=== PATIENT | female | born 1985 | race Caucasian/White ===

== ENCOUNTER 2016-11-14 10:00 | Emergency (ER) | payer BC ==
[2016-11-14 10:52] LABS: Appearance,Urine Clear (Clear); Bacteria,Urine Rare /hpf; Bilirubin,Urine Negative (Negative); Glucose,Urine (UA) Negative (Negative); Ketones,Urine Negative (Negative); Leukocyte Esterase,Urine Negative (Negative); Mucus,Urine Rare /hpf; Nitrite,Urine Negative (Negative); PH, Urine 5.5 (5.0-8.0); Particle Count 2842; Protein,Urine Negative (Negative); RBC,Urine 1 /hpf (0-5); Specific Gravity,Urine 1.012 (1.001-1.035); Squamous Epithelial Cell,Urine <1 /hpf (0-4); UA Billing (MACRO vs. MICRO) MICRO; Urobilinogen,Urine <2.0 mg/dL (<2.0); WBC,Urine 1 /hpf (0-5)
--- NOTE | 2016-11-14 11:24 | ED ---
Psych HPI - General Chief Complaint: Psychiatric Symptoms Stated Complaint: anxiety Time Seen by Provider: 11/14/16 10:52 Source: patient, family, RN notes reviewed Mode of arrival: ambulatory - History of Present Illness Initial Comments: Patient is a 31-year-old female presents to the emergency room for psychiatric evaluation. Patient states she has a history of anxiety and depression. Patient states she has episodes every once in a while of extreme anxiety and depression. Patient states she was placed on Xanax about a week ago but is not helping. Patient states her mind is racing constantly. Patient states she is not suicidal but also has thoughts that she does not want to be here anymore. Patient denies visual hallucinations. Patient denies homicidal ideations. Patient denies drinking alcohol, smoking or drug use. Patient denies any medical history. Patient denies headache, dizziness, chest pain, shortness of breath, nausea, vomiting. - Related Data Home Medications Medication Instructions Recorded Confirmed ALPRAZolam [Xanax] 0.5 mg PO TID PRN 11/14/16 11/14/16 Magnesium(Unknown Dose) 1 tab PO DAILY 11/14/16 11/14/16 Allergies Allergy/AdvReac Type Severity Reaction Status Date / Time No Known Allergies Allergy Verified 11/14/16 10:48 Review of Systems ROS Statement: Those systems with pertinent positive or pertinent negative responses have been documented in the HPI. ROS Other: All systems not noted in ROS Statement are negative. Past Medical History Past Medical History: No Reported History History of Any Multi-Drug Resistant Organisms: None Reported Past Surgical History: No Surgical Hx Reported Past Psychological History: Anxiety, Depression Smoking Status: Never smoker Past Alcohol Use History: None Reported Past Drug Use History: None Reported General Exam - General Exam Comments Initial Comments: Sitting in exam room, no acute distress. Limitations: no limitations General appearance: alert, in no apparent distress Head exam: Present: atraumatic, normocephalic, normal inspection Eye exam: Present: normal appearance ENT exam: Present: normal exam Neck exam: Present: normal inspection Respiratory exam: Present: normal lung sounds bilaterally. Absent: respiratory distress Cardiovascular Exam: Present: regular rate, normal rhythm, normal heart sounds GI/Abdominal exam: Present: soft, normal bowel sounds. Absent: distended, tenderness, guarding, rebound, rigid Extremities exam: Present: normal inspection Back exam: Present: normal inspection Neurological exam: Present: alert, oriented X3, CN II-XII intact, normal gait Psychiatric exam: Present: normal affect, normal mood Skin exam: Present: warm, dry, intact, normal color. Absent: rash Course Vital Signs 11/14/16 11/14/16 10:19 12:58 Temperature 98.1 F 97.8 F Pulse Rate 94 89 Respiratory 18 16 Rate Blood Pressure 128/62 116/87 O2 Sat by Pulse 100 98 Oximetry Medical Decision Making - Medical Decision Making Patient is a 31-year-old female presents emergency room for evaluation of depression and anxiety. Patient evaluated by emergency psych services and does not meet admission criteria at this time. Patient provided with outpatient resources. Return parameters discussed. - Lab Data Lab Results 11/14/16 11/14/16 Range/Units 10:35 10:35 Urine Color Yellow Urine Appearance Clear (Clear) Urine pH 5.5 (5.0-8.0) Ur Specific [place] 1.012 (1.001-1.035) Urine Protein Negative (Negative) Urine Glucose (UA) Negative (Negative) Urine Ketones Negative (Negative) Urine Blood Small H (Negative) Urine Nitrite Negative (Negative) Urine Bilirubin Negative (Negative) Urine Urobilinogen <2.0 (<2.0) mg/dL Ur Leukocyte Esterase Negative (Negative) Urine RBC 1 (0-5) /hpf Urine WBC 1 (0-5) /hpf Ur Squamous Epith Cells <1 (0-4) /hpf Urine Bacteria Rare H (None) /hpf Urine Mucus Rare H (None) /hpf Urine HCG, Qual Not Detected (Not Detectd) Urine Opiates Screen Not Detected (NotDetected) Ur Oxycodone Screen Not Detected (NotDetected) Urine Methadone Screen Not Detected (NotDetected) Ur Propoxyphene Screen Not Detected (NotDetected) Ur Barbiturates Screen Not Detected (NotDetected) U Tricyclic Antidepress Not Detected (NotDetected) Ur Phencyclidine Scrn Not Detected (NotDetected) Ur Amphetamines Screen Not Detected (NotDetected) U Methamphetamines Scrn Not Detected (NotDetected) U Benzodiazepines Scrn Detected H (NotDetected) Urine Cocaine Screen Not Detected (NotDetected) U Marijuana (THC) Screen Not Detected (NotDetected) Disposition Clinical Impression: Acute anxiety, Depression Disposition: HOME SELF-CARE Condition: Good Instructions: Depression (ED), Generalized Anxiety Disorder (ED) Additional Instructions: Please follow up with primary care provider or therapist. If any new symptom arises or symptoms worsen, return to ER as soon as possible. Referrals: None,Stated [Primary Care Provider] - 1-2 days Time of Disposition: 12:43
[2016-11-14 12:59] VITALS: BP 116/87; PULSE 89; RESP 16; TEMP 97.8
== END 2016-11-14 12:59 | disposition home or self-care (01) ==
LOC: EC 10:00
DX: F41.9 Anxiety disorder, unspecified (principal); F32.9 Major depressive disorder, single episode, unspecified; Z79.899 Other long term (current) drug therapy
CPT/HCPCS: 80306; 81001; 81025; 82075; 99285

== ENCOUNTER 2018-02-08 07:50 | Emergency (ER) | payer BC ==
[2018-02-08 07:59] VITALS: BP 123/77; PULSE 86; RESP 18; TEMP 98.4
[2018-02-08] MEDS ORDERED: PROPARACAINE 0.5% OPHTH DROPS 15 ML BTL BOTH EYES STA (08:24)
--- NOTE | 2018-02-08 08:27 | ED ---
Eye Problem HPI - General Chief complaint: Eye Problems Stated complaint: VISUAL DISTURBANCE Time Seen by Provider: 02/08/18 08:03 Source: patient, RN notes reviewed, old records reviewed Mode of arrival: ambulatory Limitations: no limitations - History of Present Illness Initial comments: 32-year-old female presents to the emergency department today with chief complaint of bilateral eye irritation. Patient reports that she saw her locomotive firer yesterday and was given a new prescription for contacts. Patient reports she put her new contacts and shortly afterward she started to have pain and irritation with bilateral eyes. She reports that she took the contacts out every 30 minutes. Continued had irritation. She does also report that prior to putting her contacts and she did eat jalapeno chips. Patient's states there is a possibility could be some irritation from the jalapeno flavoring. Patient states he did flush her eyes with water and milk. He did have some improvement afterwards but this evening she continue to have burning and pain in the eye. - Related Data Home Medications Medication Instructions Recorded Confirmed ALPRAZolam [Xanax] 0.5 mg PO TID PRN 11/14/16 11/14/16 Magnesium(Unknown Dose) 1 tab PO DAILY 11/14/16 11/14/16 Previous Rx's Medication Instructions Recorded Erythromycin Ophth Oint [Romycin 1 applic BOTH EYES QID #1 tube 02/08/18 Ophth Oint] Ketotifen 0.025% Ophth Soln 1 drop BOTH EYES BID #1 bottle 02/08/18 [Zaditor] Allergies Allergy/AdvReac Type Severity Reaction Status Date / Time No Known Allergies Allergy Verified 02/08/18 07:51 Review of Systems ROS Statement: Those systems with pertinent positive or pertinent negative responses have been documented in the HPI. ROS Other: All systems not noted in ROS Statement are negative. Past Medical History Past Medical History: No Reported History History of Any Multi-Drug Resistant Organisms: None Reported Past Surgical History: No Surgical Hx Reported Past Psychological History: Anxiety, Bipolar, Depression Smoking Status: Never smoker Past Alcohol Use History: None Reported Past Drug Use History: None Reported General Exam - General Exam Comments Initial Comments: 32-year-old female. Alert and oriented. No acute distress. Limitations: no limitations General appearance: alert, in no apparent distress Head exam: Present: atraumatic, normocephalic, normal inspection Eye exam: Present: PERRL, EOMI, conjunctival injection, other (No evidence of corneal abrasion or ulceration.). Absent: normal appearance (Bilateral minimal conjunctival injection.), scleral icterus, periorbital swelling ENT exam: Present: normal exam, normal oropharynx, mucous membranes moist, TM's normal bilaterally Neck exam: Present: normal inspection. Absent: tenderness, meningismus, lymphadenopathy Respiratory exam: Present: normal lung sounds bilaterally. Absent: respiratory distress, wheezes, rales, rhonchi, stridor Cardiovascular Exam: Present: regular rate, normal rhythm, normal heart sounds. Absent: systolic murmur, diastolic murmur, rubs, gallop, clicks GI/Abdominal exam: Present: soft, normal bowel sounds. Absent: distended, tenderness, guarding, rebound, rigid Extremities exam: Present: normal inspection, full ROM, normal capillary refill. Absent: tenderness, pedal edema, joint swelling, calf tenderness Back exam: Present: normal inspection Neurological exam: Present: alert, oriented X3, CN II-XII intact Psychiatric exam: Present: normal affect, normal mood Skin exam: Present: warm, dry, intact, normal color. Absent: rash Course Vital Signs 02/08/18 07:51 Temperature 98.4 F Pulse Rate 86 Respiratory 18 Rate Blood Pressure 123/77 O2 Sat by Pulse 99 Oximetry Medical Decision Making - Medical Decision Making This patient's a 32-year-old female presents emergency with bilateral eye irritation after putting his contacts in. Patient ports that started at 3:30 minutes after she contacted yesterday. Patient has evidence of bilateral conjunctival injection. No evidence of corneal abrasion or ulceration. Is not wearing contacts at this time. Just had a poor visual acuity but Patient reports that is chronic issues request that as well. Patient does have some diffuse uptake on fluorescein eye exam. Likely ALLERGIC conjunctivitis. She has been touching her eye frequently. Discussed putting her on the antibiotic ointment as well as antihistamine drops for the eye. Discussed that she should discontinue her contacts and only wear glasses in the meantime. Following up with her locomotive firer and emergency room clinician. Patient understands treatment plan will comply. Term parameters were discussed. Patient's pressures and I were 17 on the left and 15 on the right eye. Disposition Clinical Impression: Allergic conjunctivitis Disposition: HOME SELF-CARE Condition: Good Additional Instructions: Patient advised to discontinue wearing contacts until the symptoms clear. Follow-up with her emergency room clinician or locomotive firer next week. We wearing any glasses. Patient should apply the Patient has been dropped the eye as well as the ophthalmic antibiotic ointment. Return to the emergency department if any alarming signs or symptoms occur. Prescriptions: Erythromycin Ophth Oint [Romycin Ophth Oint] 1 applic BOTH EYES QID #1 tube Ketotifen 0.025% Ophth Soln [Zaditor] 1 drop BOTH EYES BID #1 bottle Is patient prescribed a controlled substance at d/c from ED?: No Referrals: None,Stated [Primary Care Provider] - 1-2 days Jean-Pierre Toth MD [STAFF PHYSICIAN] - 1-2 days Time of Disposition: 09:01
== END 2018-02-08 09:09 | disposition home or self-care (01) ==
LOC: EC 07:50
DX: H10.13 Acute atopic conjunctivitis, bilateral (principal); Z79.899 Other long term (current) drug therapy
CPT/HCPCS: 99283

== ENCOUNTER 2018-09-21 21:20 | Inpatient (IN) | payer BC ==
[2018-09-21] MEDS ORDERED: CARBOPROST TROMETHAMINE 250 MCG/ML 1 ML AMP IM PRN (22:43)
[2018-09-21] MEDS ORDERED: LIDOCAINE 0.5% (PF) 5 MG/ML (50 ML SDV) SQ PRN (22:43)
[2018-09-21] MEDS ORDERED: TERBUTALINE 1 MG/ML VIAL SQ PRN (22:43)
[2018-09-21] MEDS ORDERED: OXYTOCIN 10 UNIT/ML 1 ML VIAL IM PRN (22:43)
[2018-09-21] MEDS ORDERED: BUTORPHANOL 1 MG/ML 1 ML VIAL IV PRN (22:43)
[2018-09-21] MEDS ORDERED: METHYLERGONOVINE 0.2 MG/ML 1 ML AMP IM PRN (22:43)
[2018-09-21] MEDS: LACTATED RINGERS 1,000 ML IV SCH (22:48)
[2018-09-21 22:57] LABS: Basophils % (A) 0 %; Eosinophils # (A) 0.1 k/uL (0-0.7); Eosinophils % (A) 1 %; HCT 35.2 % (34.0-46.0); HGB 11.5 gm/dL (11.4-16.0); Hypochromasia Slight; Lymphocytes # (A) 1.5 k/uL (1.0-4.8); Lymphocytes % (A) 17 %; MCHC 32.7 g/dL (31.0-37.0); MCV 79.4 fL (80.0-100.0); Mean Platelet Volume 10.2; Monocytes # (A) 0.4 k/uL (0-1.0); Monocytes % (A) 4 %; Neutrophils # (A) 6.6 k/uL (1.3-7.7); Neutrophils % (A) 76 %; Platelet Count 211 k/uL (150-450); Poikilocytosis Slight; RBC 4.44 m/uL (3.80-5.40); WBC 8.7 k/uL (3.8-10.6)
[2018-09-21 23:31] VITALS: BMI 40.1
[2018-09-22] MEDS: LACTATED RINGERS 1,000 ML IV SCH ×2 (05:43→17:18)
[2018-09-22] MEDS ORDERED: OXYTOCIN 30 UNITS/500 ML NS 30 UNIT in SALINE 1 500ML.BAG IV SCH (06:00)
--- NOTE | 2018-09-22 08:32 | P.HPOB ---
History of Present Illness H&P Date: 09/22/18 Chief Complaint: Rupture of membranes This is a 33-year-old 1 para 0 woman with an estimated due date of 09/19/2018 who presents at 40-2/7 weeks' gestation with spontaneous rupture of membranes at approximately 9 PM on 09/13/2018. Rupture of membranes was confirmed on evaluation in labor and delivery triage. She was not regularly elinor. Her has been uncomplicated. Blood type A+, antibody screen negative, rubella immune, VDRL nonreactive, hep T racy surface antigen negative, HIV negative, group B strep negative, glucose tolerance testing within normal limits. Review of Systems All systems: negative Past Medical History Past Medical History: No Reported History Additional Past Medical History / Comment(s): IBS History of Any Multi-Drug Resistant Organisms: None Reported Past Surgical History: No Surgical Hx Reported Past Anesthesia/Blood Transfusion Reactions: No Reported Reaction Past Psychological History: Anxiety, Bipolar, Depression Smoking Status: Never smoker Past Alcohol Use History: None Reported Past Drug Use History: None Reported - Past Family History Father Family Medical History: Diabetes Mellitus, Hypertension Medications and Allergies Home Medications Medication Instructions Recorded Confirmed Type Pnv No.95/Ferrous Fum/Folic AC 1 tab PO DAILY 09/21/18 09/21/18 History [ Multivitamin Tablet] Allergies Allergy/AdvReac Type Severity Reaction Status Date / Time No Known Allergies Allergy Verified 09/21/18 21:28 Exam Vital Signs Temp Pulse Resp BP 09/21/18 23:00 98.3 F 86 16 139/52 09/21/18 22:25 98.1 F 94 18 135/85 Intake and Output 09/21/18 09/22/18 09/22/18 22:59 06:59 14:59 Other: # Voids 2 Weight 105.959 kg This is a pleasant, visibly gravid female in no obvious distress. Targeted physical exam is performed. The abdomen is gravid, soft and nontender. Estimated weight 7-1/2 pounds. On pelvic examination the cervix is 3 cm dilated 80% effaced and the vertex in the -2 station. heart tones are category 1 by external monitoring and she is elinor irregularly every 3-5 minutes with Pitocin augmentation. Results Result Diagrams: 09/21/18 22:46 Abnormal Lab Results - Last 24 Hours (Table) 09/21/18 Range/Units 22:46 MCV 79.4 L (80.0-100.0) fL RDW 16.0 H (11.5-15.5) % Assessment and Plan (1) Spontaneous rupture of membranes Current Visit: Yes Status: Acute Code(s): CXG9248 - SNOMED Code(s): 073308147 (2) Term Current Visit: Yes Status: Acute Code(s): Z34.80 - ENCOUNTER FOR SUPRVSN OF NORMAL , UNSP TRIMESTER SNOMED Code(s): 29012187 Plan: 33-year-old 1 para 0 woman at 40-2/7 weeks' gestation admitted with spontaneous rupture of membranes, not in labor. She is group B strep negative and Rh+. Pitocin augmentation has been initiated. status is currently reassuring with category 1 heart tones. Anticipate normal spontaneous vaginal delivery.
[2018-09-22] MEDS ORDERED: ROPIVACAINE 100 MG, fentaNYL (PF) 200 MCG in SODIUM CHLORIDE 0.9% 76 ML EPIDURAL ONE (14:34)
[2018-09-22] MEDS ORDERED: SIMETHICONE 80 MG CHEWABLE PO PRN (20:01)
[2018-09-22] MEDS ORDERED: WITCH HAZEL 1 EACH MED..PAD TOPICAL PRN (20:01)
[2018-09-22] MEDS ORDERED: LANOLIN CREAM 5 GM TUBE TOPICAL PRN (20:01)
[2018-09-22] MEDS ORDERED: BENZOCAINE/MENTHOL SPRAY 1 GM/SPRAY AEROSOL TOPICAL PRN (20:01)
[2018-09-22] MEDS ORDERED: ZOLPIDEM 5 MG TAB PO PRN (20:01)
[2018-09-22] MEDS ORDERED: HYDROCORTISONE 2.5% RECTAL CREAM 30 GM TUBE RECTAL PRN (20:01)
[2018-09-22] MEDS ORDERED: diphenhydrAMINE 50 MG CAP PO PRN (20:01)
[2018-09-22] MEDS ORDERED: ACETAMINOPHEN TAB 325 MG TAB PO PRN (20:01)
[2018-09-22] MEDS ORDERED: diphenhydrAMINE 25 MG CAP PO PRN (20:01)
[2018-09-22] MEDS ORDERED: diphenhydrAMINE 50 MG/ML 1 ML VIAL IVP PRN ×2 (20:01)
--- NOTE | 2018-09-22 20:01 | P.PROBDLV ---
Vaginal Delivery Note - . Vaginal Delivery Note: Findings: Female in the vertex left occiput anterior position with Apgars of 9 at 1 minute and 9 at 5 minutes weighing 8 lbs. 5 oz., 3765 g. Second- degree perineal laceration. Intact, three-vessel cord placenta. EBL 300 mL's. Delivery summary: This is a 33-year-old 1 para 0 woman who presented at 40-2/7 weeks' gestation with spontaneous rupture of membranes, not in labor. Following admission on the she was observed off for some time however did not enter into an active labor pattern and therefore Pitocin augmentation was initiated. Rupture of membranes was at 9 PM on 09/21/2018. By the morning of 09/22/2018 at 8:30 AM she was 3 cm dilated. She advanced to 5 cm dilated by approximately 1 PM. She did receive an epidural anesthetic. She progressed to complete cervical dilation on by approximately 6:30 PM. She commenced pushing with excellent maternal effort. heart tones are category 1 throughout her first and second stage of labor. She had an approximately 60 minute second stage of labor. With she was repositioned, prepped and draped in the dorsal modified Luciana position. With additional maternal effort the head delivered from the left occiput anterior position. The nose and mouth were bulb suctioned on the perineum. The anterior followed by the posterior shoulders were easily delivered. The rest the was delivered and placed onto the maternal abdomen. The nose and mouth were further bulb suctioned. After delivery the cord was clamped and cut. Apgars 9 at 1 minute and 9 at 5 minutes and weight 8 lbs. 5 oz., 3765 g. The perineum was inspected and a second-degree perineal E Reza laceration was noted. This was infused with lidocaine and repaired with 3-0 Vicryl suture in the usual fashion. An intact, three-vessel cord placenta then was expressed after an approximately 10 minute third stage of labor. The uterus was somewhat atonic and this was managed with bimanual massage. The patient received Pitocin intravenously as well as a single dose of Methergine with good uterine tone achieved. EBL is approximate 300 mL's. The rest of the vagina was inspected and no further lacerations were noted. Both mother and were doing well post delivery in the room. All counts were correct.
[2018-09-22] MEDS: IBUPROFEN 600 MG TAB PO PRN (20:14)
[2018-09-22] MEDS ORDERED: OXYTOCIN 20 UNITS/1000 ML NS 1,000 ML IV SCH (20:15)
[2018-09-23 06:04] LABS: Basophils % (A) 0 %; Eosinophils % (A) 0 %; HCT 30.8 % (34.0-46.0); HGB 9.8 gm/dL (11.4-16.0); Hypochromasia Slight; Lymphocytes # (A) 1.3 k/uL (1.0-4.8); Lymphocytes % (A) 13 %; MCH 25.2 pg (25.0-35.0); Mean Platelet Volume 10.1; Monocytes # (A) 0.4 k/uL (0-1.0); Monocytes % (A) 5 %; Neutrophils # (A) 7.8 k/uL (1.3-7.7); Neutrophils % (A) 80 %; Platelet Count 172 k/uL (150-450); RDW 15.8 % (11.5-15.5); WBC 9.7 k/uL (3.8-10.6)
[2018-09-23] MEDS: IBUPROFEN 600 MG TAB PO PRN ×2 (07:56→17:35)
[2018-09-23] MEDS: SENNOSIDES-DOCUSATE SODIUM 1 EACH TAB PO SCH (07:57)
[2018-09-23 17:14] VITALS: RESP 16
[2018-09-24] MEDS: SENNOSIDES-DOCUSATE SODIUM 1 EACH TAB PO SCH ×2 (01:50→07:44)
--- NOTE | 2018-09-24 08:17 | P.DS ---
Providers Date of admission: 09/21/18 22:22 Expected date of discharge: 09/24/18 Attending physician: Emelia Monk Primary care physician: Stated None - Discharge Diagnosis(es) (1) Spontaneous rupture of membranes Current Visit: Yes Status: Acute (2) Term Current Visit: Yes Status: Acute (3) Normal spontaneous vaginal delivery Current Visit: Yes Status: Acute (4) Perineal laceration with delivery, second degree Current Visit: Yes Status: Acute Hospital Course: This is a 33-year-old 1 now para 1 woman who presented at 40-2/7 weeks' gestation with spontaneous rupture of membranes, not in labor. She initially declined the intervention and all signs were reassuring. She ultimately agreed to Pitocin augmentation after many hours of no onset of active labor or cervical change. She did receive Pitocin augmentation and ultimately progress to complete cervical dilation. She went on to deliver a liveborn female infant ov er a secondary perineal laceration with Apgars of 9 at 1 minute and 9 at 5 minutes weighing 8 lbs. 5 oz. The patient's course was unremarkable. By day #1 she was ambulating and voiding without difficulty, her vital signs were stable, her lochia was decreasing and she was attempting to breast-feed. By day #2 she continued to do well with minimal lochia. The uterus was firm and nontender below the level of the umbilicus. Her perineum was well healing. She was breast-feeding successfully. She was therefore discharged home with routine instructions for care and follow-up. Procedures: Normal spontaneous vaginal delivery, repair of second-degree perineal laceration Patient Condition at Discharge: Good Plan - Discharge Summary New Discharge Prescriptions: No Action Pnv No.95/Ferrous Fum/Folic AC [ Multivitamin Tablet] 1 tab PO DAILY Discharge Medication List Pnv No.95/Ferrous Fum/Folic AC [ Multivitamin Tablet] 1 tab PO DAILY 09/21/18 [History]
[2018-09-24 16:16] VITALS: BP 136/79; PULSE 74; TEMP 98.3
== END 2018-09-24 20:45 | disposition home or self-care (01) | DRG 807 ==
LOC: FBPOP 21:20 → 4FBP 22:22
PROVIDERS: ADMIT Obstetrics & Gynecology; ATTEND Obstetrics & Gynecology
PROC: 10E0XZZ Delivery of Products of Conception, External Approach (ICD-10-PCS; principal; 2018-09-22)
PROC: 0KQM0ZZ Repair Perineum Muscle, Open Approach (ICD-10-PCS; principal; 2018-09-22)
PROC: 4A1HXCZ Monitoring of Products of Conception, Cardiac Rate, External Approach (ICD-10-PCS; principal; 2018-09-22)
PROC: 3E0R3BZ Introduction of Anesthetic Agent into Spinal Canal, Percutaneous Approach (ICD-10-PCS; 2018-09-22)
PROC: 00HU33Z Insertion of Infusion Device into Spinal Canal, Percutaneous Approach (ICD-10-PCS; 2018-09-22)
DX: O70.1 Second degree perineal laceration during delivery (principal); Z37.0 Single live birth; O99.344 Other mental disorders complicating childbirth; F41.9 Anxiety disorder, unspecified; F31.9 Bipolar disorder, unspecified; Z3A.40 40 weeks gestation of pregnancy; Z83.3 Family history of diabetes mellitus; Z87.19 Personal history of other diseases of the digestive system; Z82.49 Family history of ischemic heart disease and other diseases of the circulatory system
CPT/HCPCS: 59025; 84112; 85025; 86850; 86900; 86901; 99213